=== PATIENT | female | born 1990 | race Caucasian/White ===

== ENCOUNTER 2021-06-27 05:39 | Inpatient (IN) ==
[2021-06-27] MEDS ORDERED: OXYTOCIN 30 UNITS/500 ML BAG IV PRN ×4 (05:43→12:05)
[2021-06-27] MEDS: LACTATED RINGER'S 1,000 ML IV PRN ×2 (06:05→08:53)
[2021-06-27 06:16] LABS: Hematocrit (blood only) 40.1 % (37-47); Hemoglobin 12.9 g/dL (12.0-16.0); Mean Corpuscular Hemoglobin 27.6 pg (25-34); Mean Corpuscular Hgb Conc 32.2 g/dL (32-36); Mean Corpuscular Volume 85.7 fL (80-100); Mean Platelet Volume 10.6 fL (7.4-10.4); Platelet Count 175 K/uL (130-400); RDW Standard Deviation 49.7 fL (36.4-46.3); Red Blood Count 4.68 M/uL (4.2-5.4); White Blood Count 8.99 K/uL (4.8-10.8)
[2021-06-27] MEDS ORDERED: SODIUM CHLORIDE 0.9% INJ 10 ML VIAL ONE (06:18)
[2021-06-27] MEDS ORDERED: ePHEDrine sulfate 50 MG/ML AMP ONE (06:18)
[2021-06-27] MEDS ORDERED: fentaNYL 2MCG/ML ROPIVACAINE 1.25MG/ML 100 ML BAG EPI ONE (06:19)
[2021-06-27] MEDS ORDERED: fentaNYL citrate 100 MCG/2 ML VIAL ONE (06:19)
[2021-06-27] MEDS ORDERED: BUPIVACAINE 0.25% 30 ML VIAL ONE (06:19)
[2021-06-27] MEDS ORDERED: NALOXONE HCL 1 MG in SODIUM CHLORIDE 0.9% 1000ML 1,000 ML IV PRN (06:36)
[2021-06-27] MEDS ORDERED: NALBUPHINE HCL INJ 10 MG/ML AMP IV PRN (06:36)
[2021-06-27] MEDS ORDERED: ONDANSETRON INJ 2 MG/ML 2 ML VIAL IV PRN (06:36)
[2021-06-27] MEDS ORDERED: NALOXONE HCL 0.4 MG/1 ML VIAL/CARP IV PRN (06:36)
[2021-06-27] MEDS ORDERED: fentaNYL 2MCG/ML ROPIVACAINE 1.25MG/ML 100 ML BAG EPI PRN (06:36)
[2021-06-27] MEDS ORDERED: ePHEDrine sulfate 50 MG/ML AMP IV PRN (06:36)
[2021-06-27] MEDS ORDERED: diphenhydrAMINE 50 MG/ML VIAL IV PRN (06:36)
--- NOTE | 2021-06-27 06:38 | Anesthesiology Consultation ---
Date of Service June 27, 2021 Assessment & Plan (1) Encounter for pre-operative examination: Chart Review Chart Review: Patient NOT seen in Pre Admission Testing and Acceptable Risk for Labor Epidural Consults Requested none History Height/Weight Height: 5 ft Weight: 67.132 kg Allergies Allergy/AdvReac Type Severity Reaction Status Date / Time No Known Allergies Allergy Verified 06/26/21 10:06 Medications Home Medications Medication Instructions Recorded Confirmed Last Taken levothyroxine 25 mcg capsule 25 mcg PO QAM 11/08/20 06/26/21 06/26/21 09:00 prenat.vits,gavino,[id number] 1 tab PO QAM 11/08/20 06/26/21 06/21/21 21:00 Active Medications Generic Name Dose Route Start Last Admin Trade Name Freq PRN Reason Stop Dose Admin Lactated Ringer's 1,000 mls @ 125 mls/hr 06/27/21 05:43 06/27/21 06:05 Lr IV 06/29/21 05:42 999 mls/hr .Q8H PRN Administration L&D Protocol Protocol Past Medical History Medical History (Updated 06/27/21 @ 06:38 by Gabe Villareal MD) Encounter for pre-operative examination Exercise / Class Metabolic Activity II 4-5 Yardwork/Stairs/Walk up hill Past Family History Family History Denies family history of Ovarian cancer Prostate cancer Breast cancer Colorectal cancer Past Surgical History Surgical History H/O rhinoplasty S/P wisdom tooth extraction Past Anesthesia History No Hx of Anesthesia Complications and No Family Hx of Anesthesia Complications History of PONV No Hx of PONV and No Hx of Motion Sickness Social History Smoking Status: Never smoker Hx Alcohol Use: No Hx Substance Use: No substance use type: does not use Physical Exam Vital Signs Last Vital Signs Temp 36.4 C L 06/27/21 05:51 Pulse 70 06/27/21 06:55 BP 109/74 06/27/21 06:55 Pulse Ox 90 06/27/21 06:54 Testing Laboratory Results 06/27/21 05:55
--- NOTE | 2021-06-27 07:34 | History & Physical Report ---
Date of Service June 27, 2021 Assessment & Plan (1) Encounter for supervision of normal in multigravida: Plan: Admit to L&D. EFM/toco. Labs. IV. Plan is for IOL. Admission and Anticipated Discharge Date Admission Date: June 27, 2021 History of Present Illness Chief Complaint: contractions Primary Care Provider: Nik Mckay, 31yo @ 41 0/7, presented with contractions. +FM, no vaginal bleeding, no leaking fluid. complicated by hypothyroidism, COVID infection during the . Allergies Allergy/AdvReac Type Severity Reaction Status Date / Time No Known Allergies Allergy Verified 06/26/21 10:06 Home Medications Medication Instructions Recorded Confirmed Type levothyroxine 25 mcg capsule 25 mcg PO QAM 11/08/20 06/26/21 History prenat.vits,gavino,ivk-whmz-vpxcy 1 tab PO QAM 11/08/20 06/26/21 History Patient History Medical History (Updated 06/27/21 @ 06:38 by Gabe Villareal MD) Encounter for pre-operative examination Surgical History H/O rhinoplasty S/P wisdom tooth extraction Family History Denies family history of Ovarian cancer Prostate cancer Breast cancer Colorectal cancer Social History Smoking Status: Never smoker Second Hand Exposure: No; Hx Alcohol Use: No Hx Substance Use: No Preferred Language: Bulgarian Communication Ability: Effective Hand Engraver Required: No Beliefs That Will Affect Care: Protestant Protestant Beliefs: Latter-Day- behind curtain marital status: marital status details: Cezar Waller (28) [phone] Current Living Situation: Family Current Living Situation Comment: lives with family- no pets current occupational status: employed current occupation: [employer] Other Information That Helps Us Care for You: No Feels Safe at Home: Yes Safety Concerns: Feels Safe At This Time Assistive Devices: Contacts Review of Systems All systems reviewed & are unremarkable except as noted in HPI & below Physical Exam Physical Exam: FHT Cat 1 Fritch - Q 4 SVE 4/80/-2 (same as prior exam) Constitutional: WD/WN, vitals as above Respiratory: normal respiratory effort, lungs clear to auscultation no respiratory distress Cardiovascular: Rate/Rhythm: regular rate and regular rhythm Gastrointestinal (Abdomen): Inspection/Auscultation: abdomen normal to inspection Percussion/Palpation: abdomen soft; abdomen nontender Gravid. No s/s chorio or abruption. Skin: no rashes, warm and dry Psychiatric: A+Ox3, euthymic affect Results & Data ([facility]) Vital Signs (Past 12 Hours) Vital Signs Temp Pulse Resp BP Pulse Ox 06/27/21 07:26 77 98 06/27/21 07:21 90 99/69 L 100 06/27/21 07:19 72 106/67 06/27/21 07:17 72 98/66 L 06/27/21 07:16 83 99 06/27/21 07:15 77 106/64 06/27/21 07:14 36.8 C 20 06/27/21 07:13 81 105/61 06/27/21 07:11 90 111/72 99 06/27/21 07:09 82 107/76 06/27/21 07:07 83 109/72 06/27/21 07:06 83 100 06/27/21 07:05 80 106/69 06/27/21 07:03 72 109/70 06/27/21 07:01 74 101/63 100 06/27/21 06:59 86 18 106/71 06/27/21 06:57 71 98/65 L 06/27/21 06:56 74 100 06/27/21 06:55 70 109/74 06/27/21 06:54 87 90 06/27/21 06:53 82 113/78 06/27/21 06:52 20 06/27/21 06:51 78 122/82 98 06/27/21 06:48 86 89 L 06/27/21 06:46 77 100 06/27/21 05:51 36.4 C L 79 105/70 06/27/21 05:49 79 105/70 Coding Level of Care Code None Diagnoses Encounter for supervision of normal in multigravida Z34.80
--- NOTE | 2021-06-27 08:39 | Labor Progress Brief Note ---
Date of Service June 27, 2021 Subjective Just threw up. Epidural working. Assessment & Plan (1) Normal labor: Plan: Discussed pit vs. arom. they want pit and then arom. Fetus category one. Continue current management. Admission and Anticipated Discharge Date Admission Date: June 27, 2021 Physical Exam Physical Exam: cx--deferred toco--irregular , spaced since epidural efm--110 with mod variability, small accels Results & Data ([facility]) Vital Signs (Past 12 Hours) Vital Signs Temp Pulse Resp BP Pulse Ox 06/27/21 08:31 97 H 100 06/27/21 08:26 89 99 06/27/21 08:23 92 H 105/75 06/27/21 08:21 92 H 99 06/27/21 08:16 80 98 06/27/21 08:11 71 99 06/27/21 08:06 77 115/75 98 06/27/21 08:01 74 100 06/27/21 08:00 20 06/27/21 07:56 87 99 06/27/21 07:52 82 132/80 06/27/21 07:51 84 100 06/27/21 07:46 77 99 06/27/21 07:41 73 98 06/27/21 07:37 75 102/67 06/27/21 07:36 72 96 06/27/21 07:32 88 94 06/27/21 07:31 75 97 06/27/21 07:30 20 06/27/21 07:26 77 98 06/27/21 07:21 90 99/69 L 100 06/27/21 07:19 72 106/67 06/27/21 07:17 72 98/66 L 06/27/21 07:16 83 99 06/27/21 07:15 77 106/64 06/27/21 07:14 36.8 C 20 06/27/21 07:13 81 105/61 06/27/21 07:11 90 111/72 99 06/27/21 07:09 82 107/76 06/27/21 07:07 83 109/72 06/27/21 07:06 83 100 06/27/21 07:05 80 106/69 06/27/21 07:03 72 109/70 06/27/21 07:01 74 101/63 100 06/27/21 06:59 86 18 106/71 12/22/21 06:57 71 98/65 L 06/27/21 06:56 74 100 06/27/21 06:55 70 109/74 06/27/21 06:54 87 90 06/27/21 06:53 82 113/78 06/27/21 06:52 20 06/27/21 06:51 78 122/82 98 06/27/21 06:48 86 89 L 06/27/21 06:46 77 100 06/27/21 05:51 36.4 C L 79 105/70 06/27/21 05:49 79 105/70 Coding Level of Care Code None Diagnoses Normal labor O80; Z37.9
[2021-06-27] MEDS ORDERED: ROPIVACAINE 0.5% 5 MG/ML 30 ML VIAL ONE (11:09)
[2021-06-27] MEDS ORDERED: LIDOCAINE 2%/EPINEPHRINE 1:200,000 20 ML SDV ONE (11:09)
--- NOTE | 2021-06-27 11:21 | Labor Progress Brief Note ---
Date of Service June 27, 2021 Subjective Notes contractions getting uncomfortable again Assessment & Plan (1) Normal labor: Plan: continued management. Will try to get more comfortable. fetus reassuring. anticipate . Admission and Anticipated Discharge Date Admission Date: June 27, 2021 Physical Exam Physical Exam: cx--7-8/100/-1 toco--q2-3min efm--110 with mod variabiltiy, small accels, early/variable with some contraction bloody show and pads wet, cannot feel membranes so rom Results & Data ([facility]) Vital Signs (Past 12 Hours) Vital Signs Temp Pulse Resp BP Pulse Ox 06/27/21 11:16 77 100 06/27/21 11:14 73 115/70 06/27/21 11:12 94 H 115/66 06/27/21 11:11 94 H 100 06/27/21 11:07 83 118/71 06/27/21 11:06 82 100 06/27/21 11:01 77 100 06/27/21 11:00 20 06/27/21 10:56 77 100 06/27/21 10:53 75 117/78 06/27/21 10:51 77 99 06/27/21 10:46 72 100 06/27/21 10:43 76 94 06/27/21 10:41 75 100 06/27/21 10:37 92 H 99/77 L 06/27/21 10:36 87 100 06/27/21 10:34 99 H 93 06/27/21 10:31 71 99 06/27/21 10:30 36.8 C 20 06/27/21 10:26 80 99 06/27/21 10:21 70 107/72 100 06/27/21 10:16 76 100 06/27/21 10:11 74 100 06/27/21 10:07 71 110/75 06/27/21 10:06 71 99 06/27/21 10:01 79 100 06/27/21 10:00 20 06/27/21 09:56 74 100 06/27/21 09:51 72 104/73 100 06/27/21 09:46 67 100 06/27/21 09:41 67 97 06/27/21 09:37 71 100/68 06/27/21 09:36 69 98 06/27/21 09:31 77 100 06/27/21 09:30 18 06/27/21 09:26 68 100 06/27/21 09:21 83 101/63 100 06/27/21 09:16 81 100 06/27/21 09:11 91 H 100 06/27/21 09:07 73 118/70 06/27/21 09:06 77 100 06/27/21 09:01 69 98 06/27/21 09:00 20 06/27/21 08:56 79 100 06/27/21 08:51 74 123/71 100 06/27/21 08:46 81 100 06/27/21 08:41 82 100 06/27/21 08:37 80 125/71 06/27/21 08:36 85 99 06/27/21 08:31 97 H 100 06/27/21 08:30 36.6 C 20 06/27/21 08:26 89 99 06/27/21 08:23 92 H 105/75 06/27/21 08:21 92 H 99 06/27/21 08:16 80 98 06/27/21 08:11 71 99 06/27/21 08:06 77 115/75 98 06/27/21 08:01 74 100 06/27/21 08:00 20 06/27/21 07:56 87 99 06/27/21 07:52 82 132/80 06/27/21 07:51 84 100 06/27/21 07:46 77 99 06/27/21 07:41 73 98 06/27/21 07:37 75 102/67 06/27/21 07:36 72 96 06/27/21 07:32 88 94 06/27/21 07:31 75 97 06/27/21 07:30 20 06/27/21 07:26 77 98 06/27/21 07:21 90 99/69 L 100 06/27/21 07:19 72 106/67 06/27/21 07:17 72 98/66 L 06/27/21 07:16 83 99 06/27/21 07:15 77 106/64 06/27/21 07:14 36.8 C 20 06/27/21 07:13 81 105/61 06/27/21 07:11 90 111/72 99 06/27/21 07:09 82 107/76 06/27/21 07:07 83 109/72 06/27/21 07:06 83 100 06/27/21 07:05 80 106/69 06/27/21 07:03 72 109/70 06/27/21 07:01 74 101/63 100 06/27/21 06:59 86 18 106/71 06/27/21 06:57 71 98/65 L 06/27/21 06:56 74 100 06/27/21 06:55 70 109/74 06/27/21 06:54 87 90 06/27/21 06:53 82 113/78 06/27/21 06:52 20 06/27/21 06:51 78 122/82 98 06/27/21 06:48 86 89 L 06/27/21 06:46 77 100 06/27/21 05:51 36.4 C L 79 105/70 06/27/21 05:49 79 105/70 Coding Level of Care Code None Diagnoses Normal labor O80; Z37.9
[2021-06-27] MEDS ORDERED: BENZOCAINE 20% AER SPR 82.5 GM CAN EXT PRN (12:05)
[2021-06-27] MEDS ORDERED: SUPERCREAM 0.870% 15 GM JAR EXT PRN (12:05)
[2021-06-27] MEDS ORDERED: HYDROCORTISONE ACETATE 25 MG SUPP PR PRN (12:05)
[2021-06-27] MEDS ORDERED: oxyCODONE/ACETAMINOPHEN 5mg/325mg TAB PO PRN (12:05)
[2021-06-27] MEDS ORDERED: DIPHTHERIA/TETANUS/PERTUSSIS 0.5 ML SYR/VIAL IM ONE (12:05)
[2021-06-27] MEDS ORDERED: bisacodyL 10 MG SUPP PR PRN (12:05)
--- NOTE | 2021-06-27 12:09 | Delivery Summary ---
Vaginal Delivery Summary Date of Service June 27, 2021 Vaginal Delivery Summary and 1st Degree LAC Pre-operative Diagnosis: at 41 weeks labor Post-operative Diagnosis: same Procedure: epidural small first degree repair EBL: 300cc Anesthesia: epidural Procedure: The patient was admitted in early labor. She received an epidural, had srom and progressed to c/c/+2 station. The patient pushed for about 4 contractions to deliver a viable male in vi position. The nose and mouth were bulb suctioned on the perineum and the rest of the was then delivered without difficulty. The baby was vigorous. The nose and mouth were again bulb suctioned and the was placed in the maternal abdomen for drying and attention. Cord was clamped and cut at one minute of life. Cord blood and segment obtained. Placenta delivered spontaneous, intact with a three vessel cord. Cervix/sulci/rectum/perineum were intact. A small laceration at the introitus was repaired in the normal standard fashion. Hemostasis obtained with dilute pitocin and fundal massage. Apgars were 8/9. Mother and baby doing well at the end of the delivery. [facility] [place] Vaginal Delivery Charge Delivery Type Details: and 1st Degree LAC
--- NOTE | 2021-06-27 14:14 | Anesthesia Procedure Note ---
Date of Service June 27, 2021 Anesthesia Post Epidural Note Vital Signs Vital Signs: Temp Pulse Resp BP Pulse Ox 36.8 C 76 20 116/68 94 06/27/21 10:30 06/27/21 14:03 06/27/21 13:34 06/27/21 14:03 06/27/21 12:01 Pain Intensity Bilateral Abdomen: Pain Intensity: 0 Notes Mental Status: alert / awake / arousable and participated in evaluation Nausea / Vomiting: adequately controlled Pain: adequately controlled Airway Patency, RR, SpO2: stable & adequate BP & HR: stable & adequate Hydration State: stable & adequate Neuraxial Anesthesia: was administered and sensory block is resolving Anesthetic Complications: no major complications apparent Epidural: Removed without complications and With tip intact
[2021-06-27] MEDS: IBUPROFEN 600 MG TAB PO PRN ×2 (17:49→23:13)
[2021-06-27] MEDS: ACETAMINOPHEN 325 MG TAB PO PRN (20:40)
[2021-06-27] MEDS: DOCUSATE SODIUM 100 MG CAP PO SCH (20:40)
[2021-06-28] MEDS ORDERED: LEVOTHYROXINE SODIUM 25 MCG TABLET PO SCH (06:30)
--- NOTE | 2021-06-28 07:33 | Obstetrical Progress Note ---
Date of Service June 28, 2021 Assessment & Plan (1) Vaginal delivery: Doing well. Routine care. Mother/Humanities Professor with her today. Rh+/GBS negative. Day #:: 1 Subjective Ambulation: ambulating normally Voiding: no voiding problems Passing Gas:: Yes Diet Tolerance:: regular diet Lochia:: Moderate Feeding Type:: breast feeding Baby under the lights. Physical Exam Constitutional WD/WN, vitals as above Cardiovascular Extremities: no calf tenderness and no edema Gastrointestinal (Abdomen) soft, nt, nd, ff/nt 1 below u Results & Data ([facility]) Vital Signs (Past 12 Hours) Vital Signs Temp Pulse Resp BP Pulse Ox 06/28/21 03:00 36.5 C 71 16 114/76 98 06/27/21 23:00 37.2 C 76 16 112/72 98
[2021-06-28 07:50] LABS: Hemoglobin 12.8 g/dL (12.0-16.0)
[2021-06-28] MEDS: DOCUSATE SODIUM 100 MG CAP PO SCH ×2 (08:07→20:46)
[2021-06-28] MEDS: IBUPROFEN 600 MG TAB PO PRN ×3 (08:07→23:10)
[2021-06-28] MEDS: PRENATAL VITAMIN 1 TAB PO SCH (08:07)
[2021-06-28] MEDS: ACETAMINOPHEN 325 MG TAB PO PRN (17:08)
[2021-06-28] MEDS ORDERED: bisacodyL 5 MG TABEC PO SCH (20:00)
--- NOTE | 2021-06-29 07:37 | Obstetrical Progress Note ---
Date of Service June 29, 2021 Assessment & Plan (1) care and examination: stable, ready for d/c home. f/u 6wks pp check. instructions reviewed Subjective Ambulation: ambulating normally Voiding: no voiding problems Diet Tolerance:: regular diet Lochia:: Small Feeding Type:: breast feeding breast feeding. denies complaints. Constitutional: + as per Subjective / HPI Physical Exam Constitutional WD/WN, vitals as above Respiratory normal respiratory effort, lungs clear to auscultation Cardiovascular Rate/Rhythm: regular rate and regular rhythm Gastrointestinal (Abdomen) Inspection/Auscultation: abdomen normal to inspection Percussion/Palpation: abdomen soft Fundus firm 2cm down Musculoskeletal nt calves no edema Neurologic grossly normal Psychiatric A+Ox3, euthymic affect Results & Data ([facility]) Vital Signs (Past 12 Hours) Vital Signs Temp Pulse Resp BP Pulse Ox 06/29/21 07:17 97.9 F 69 18 105/67 06/29/21 00:25 97.9 F 69 18 108/72 06/28/21 20:45 98.8 F 68 18 108/71 98
[2021-06-29] MEDS ORDERED: LEVOTHYROXINE SODIUM 25 MCG TABLET PO SCH (07:45)
[2021-06-29] MEDS: PRENATAL VITAMIN 1 TAB PO SCH (08:13)
[2021-06-29] MEDS: DOCUSATE SODIUM 100 MG CAP PO SCH (08:13)
[2021-06-29] MEDS: IBUPROFEN 600 MG TAB PO PRN (08:13)
== END 2021-06-29 16:30 | disposition home or self-care (01) | DRG 807 ==
LOC: 4S1 05:39 → 4S2 15:40